=== PATIENT | male | born 1990 | race Caucasian/White ===

== ENCOUNTER 2018-02-19 12:00 | Emergency (ER) | payer OTHER ==
[~2018-02-19] VITALS: Ht 175.3 cm; Wt 118.0 kg
[2018-02-19] MEDS ORDERED: SODIUM CHLORIDE 0.9% 1,000ML IVBOLUS ONE (12:30)
[2018-02-19] MEDS ORDERED: DIPHENHYDRAMINE 50 MG/ML, 1ML IVPush ONE (12:30)
[2018-02-19] MEDS ORDERED: PROCHLORPERAZINE 5 MG/ML, 2ML IVPush ONE (12:30)
[2018-02-19] MEDS ORDERED: DIPHENHYDRAMINE 50 MG/ML, 1ML ONE (12:48)
[2018-02-19] MEDS ORDERED: PROCHLORPERAZINE 5 MG/ML, 2ML ONE (12:48)
[2018-02-19 12:57] LABS: BASOPHILS # (AUTO) 0.02 x10^3/uL (0-0.1); BASOPHILS % (AUTO) 0 % (0-1); EOSINOPHILS # (AUTO) 0.19 x10^3/uL (0-0.4); EOSINOPHILS % (AUTO) 2 % (1-7); LYMPHOCYTES # (AUTO) 2.33 x10^3/uL (1-3.4); LYMPHOCYTES % (AUTO) 27 % (22-44); MD NO; MEAN CORPUSCULAR HEMOGLOBIN 29.1 pg (27.5-34.5); MEAN CORPUSCULAR HGB CONC 33.5 g/dL (33.2-36.2); MEAN CORPUSCULAR VOLUME 86.9 fL (81-97); MEAN PLATELET VOLUME 8.7 fL (7.4-10.4); MONOCYTES # (AUTO) 0.42 x10^3/uL (0.2-0.8); MONOCYTES % (AUTO) 5 % (2-9); NEUTROPHILS # (AUTO) 5.54 x10^3/uL (1.8-6.8); NEUTROPHILS % (AUTO) 65 % (42-75); PLATELET COUNT 219 x10^3/uL (130-400); RED CELL DISTRIBUTION WIDTH 13.6 % (9.4-14.8)
[2018-02-19 13:10] LABS: ALANINE AMINOTRANSFERASE 41 U/L (12-78); ALBUMIN 4.2 g/dL (3.4-5.0); ANION GAP 5 mmol/L (5-15); CALCIUM 8.7 mg/dL (8.5-10.1); CHLORIDE 110 mmol/L (98-107); CREATININE 1.01 mg/dL (0.7-1.3)
[2018-02-19 13:12] LABS: ALKALINE PHOSPHATASE 49 U/L (45-117); BILIRUBIN,TOTAL 0.6 mg/dL (0.2-1.0); TOTAL PROTEIN 7.8 g/dL (6.4-8.2)
[2018-02-19] MEDS ORDERED: OMNIPAQUE 350 MG/ML, 100ML BOTTLE ONE (14:12)
[2018-02-19 14:48] VITALS: BP 134/85
== END 2018-02-19 14:50 | disposition home or self-care (01) ==
LOC: EDBD 12:00 → ED 14:44
DX: G44.219 Episodic tension-type headache, not intractable (principal)
CPT/HCPCS: 36415; 70450; 70496; 80053; 85025; 93005; 96361; 96374; 96375; 99285; J0780; J1200; J7030; Q9967

== ENCOUNTER 2021-04-22 10:11 | Emergency (ER) | payer OTHER ==
[~2021-04-22] VITALS: Ht 175.3 cm; Wt 115.1 kg
[2021-04-22] MEDS ORDERED: MAALOX/HYOSCYAMINE/LIDOCAINE 45 ML BTL PO ONE (11:30)
[2021-04-22] MEDS ORDERED: MAALOX/HYOSCYAMINE/LIDOCAINE 45 ML BTL ONE (11:50)
[2021-04-22 11:52] LABS: BASOPHILS % (AUTO) 1 % (0-1); EOSINOPHILS % (AUTO) 2 % (1-7); LYMPHOCYTES % (AUTO) 27 % (22-44); MEAN CORPUSCULAR HEMOGLOBIN 30.1 pg (27.5-34.5); MEAN CORPUSCULAR HGB CONC 34.1 g/dL (33.2-36.2); MEAN PLATELET VOLUME 8.5 fL (7.4-10.4); MONOCYTES % (AUTO) 8 % (2-9); NEUTROPHILS % (AUTO) 63 % (42-75); PLATELET COUNT 212 x10^3/uL (130-400); RED BLOOD COUNT 5.05 x10^6/uL (4.38-5.82); RED CELL DISTRIBUTION WIDTH 13.7 % (9.4-14.8)
--- NOTE | 2021-04-22 11:52 | NUR ---
PT MEDICATED PER ERP ORDER FOR 2/10 R CHEST AND EPIGASTRIC PAIN. CALL LIGHT WITHIN REACH.
[2021-04-22 11:56] LABS: ALBUMIN 3.9 g/dL (3.4-5.0); ANION GAP 6 mmol/L (5-15); CALCIUM 8.5 mg/dL (8.5-10.1); CHLORIDE 110 mmol/L (98-107)
[2021-04-22 12:04] LABS: ALANINE AMINOTRANSFERASE 51 U/L (12-78); ALKALINE PHOSPHATASE 44 U/L (45-117); BILIRUBIN,TOTAL 0.7 mg/dL (0.2-1.0); CREATININE 0.95 mg/dL (0.7-1.3); TOTAL PROTEIN 7.1 g/dL (6.4-8.2); TROPONIN I < 0.015 ng/mL (0.000-0.045)
[2021-04-22 13:42] VITALS: BP 128/71
== END 2021-04-22 13:44 | disposition home or self-care (01) ==
LOC: ED 12:06
DX: K21.00 Gastro-esophageal reflux disease with esophagitis, without bleeding (principal); R07.89 Other chest pain; R94.31 Abnormal electrocardiogram [ECG] [EKG]
CPT/HCPCS: 36415; 71045; 80053; 83690; 84484; 85025; 93005; 99285

== ENCOUNTER → 2021-04-22 | Outpatient (CLI) | payer OTHER ==
[2021-04-22 14:32] LABS: CHOL/HDL RATIO 4.5; LDL/HDL RATIO 2.9 (0.5-3.0)
== END | disposition home or self-care (01) ==
LOC: LAB 13:43
PROVIDERS: ATTEND Nurse Practitioner Family
DX: Z13.1 Encounter for screening for diabetes mellitus (principal); Z13.220 Encounter for screening for lipoid disorders; K21.9 Gastro-esophageal reflux disease without esophagitis; R00.2 Palpitations; Z68.38 Body mass index [BMI] 38.0-38.9, adult
CPT/HCPCS: 36415; 80061; 83036; 84443